=== PATIENT | female | born 1950 | race Caucasian/White ===

== ENCOUNTER 2016-10-01 07:41 | Emergency (ER) | payer OTHER ==
[~2016-10-01] VITALS: Ht 149.9 cm; Wt 71.7 kg
[~2016-10-01 07:41] MED LIST: ASCORBIC ACID500 M3; ASPIR 8181 M1; ASPIR-LOW81 MG PO; ATORVASTATIN CA10 MG PO; ATORVASTATIN CA40 MG PO; AZOR 5/20 MG1 TABLET; AZOR 5/20 MG1 TABLET PO; CELLCEPT250 MG; CELLCEPT250 MG PO; CLONIDINE HCL0.1 MG PO; EFFIENT10 MG PO; EYE SUPPORT PO; FISH OIL CONC1 EACH; GEMFIBROZIL600 MG; LEVAQUIN750 MG PO; LIDOCAINE700 MG TD; LIPITOR10 MG; METAXALONE800 MG PO; METOPROLOL TAR100 MG PO; MUCINEX D ER T1 EACH PO; MULTIVITAMIN1 EAC2 PO; POTASSIUM-9999 MG PO; PREDNISONE20 MG PO; RAPAMUNE1 MG PO; RAPAMUNE2 MG; TESSALON200 MG PO; TOPROL XL100 MG PO; TYLENOL EXTRA500 MG PO; VITAMIN E400 UNIT
[2016-10-01 08:19] LABS: HEMATOCRIT 42.6 % (36.0-46.0); MCH 26.6 PG (29.0-34.0); MCHC 33.1 G/DL (30.0-36.0); MCV 80.2 FL (83-99); MEAN PLAT.VOLUME 9.5 uM^3 (9.5-12.4); PLATELET COUNT 397 K/uL (156-360); RBC DIS.WIDTH-CV 14.5 % (11.8-14.6); RBC DIS.WIDTH-SD 42.1 % (39-53); RED BLOOD COUNT 5.31 M/uL (3.80-5.20); WHITE BLOOD COUNT 9.8 K/uL (4.1-10.2)
[2016-10-01 08:27] LABS: CHLORIDE 105 mEq/L (99-109); POTASSIUM 3.5 mEq/L (3.7-5.4); SODIUM 140 mEq/L (136-147)
[2016-10-01 08:28] LABS: GLUCOSE 119 mg/dL (70-99)
[2016-10-01 08:30] LABS: ANION GAP 11 MEQ/L (2-14)
[2016-10-01 08:32] LABS: GFR ESTIMATE (CALCULATED) > 59 mL/min/
[2016-10-01 08:33] LABS: UREA NITROGEN (BUN) 6 mg/dL (9-23)
[2016-10-01 12:51] LABS: INFLUENZA A VIRAL ANTIGEN INVALID ASSAY; INFLUENZA B VIRAL ANTIGEN INVALID ASSAY
[2016-10-01] MEDS ORDERED: ZITHROMAX Z-PA250 MG PO (13:04)
[2016-10-01] MEDS ORDERED: ROBITUSSIN NIG118 ML PO (13:04)
[2016-10-01] MEDS ORDERED: PROAIR HFA8.5 GM IH (13:04)
[2016-10-01] MEDS ORDERED: TESSALON PERLE100 MG PO (13:04)
[2016-10-01 13:31] VITALS: BP 150/67
== END 2016-10-01 13:37 | disposition home or self-care (01) ==
LOC: EME 07:41
PROVIDERS: Nurse Practitioner Family
DX: J20.9 Acute bronchitis, unspecified (principal); R06.00 Dyspnea, unspecified; R09.81 Nasal congestion; M79.1 Myalgia; Z87.01 Personal history of pneumonia (recurrent); I10 Essential (primary) hypertension; K21.9 Gastro-esophageal reflux disease without esophagitis; G89.29 Other chronic pain; Z96.643 Presence of artificial hip joint, bilateral; Z94.0 Kidney transplant status; Z79.82 Long term (current) use of aspirin; Z87.891 Personal history of nicotine dependence
CPT/HCPCS: 71020; 80048; 85027; 87502; 93005; 94640; 99281; 99284

== ENCOUNTER 2017-07-18 10:32 | Emergency (ER) | payer OTHER ==
[~2017-07-18] VITALS: Ht 152.4 cm; Wt 76.4 kg
[~2017-07-18 10:32] MED LIST changes: +PROAIR HFA8.5 GM IH; +ROBITUSSIN NIG118 ML PO; +TESSALON PERLE100 MG PO; +ZITHROMAX Z-PA250 MG PO
[2017-07-18 11:37] LABS: HEMATOCRIT 42.9 % (36.0-46.0); MCH 26.7 PG (29.0-34.0); MCHC 32.9 G/DL (30.0-36.0); MCV 81.1 FL (83-99); MEAN PLAT.VOLUME 9.3 uM^3 (9.5-12.4); PLATELET COUNT 434 K/uL (156-360); RBC DIS.WIDTH-SD 44.3 % (39-53); RED BLOOD COUNT 5.29 M/uL (3.80-5.20)
[2017-07-18 11:48] LABS: CHLORIDE 105 mEq/L (99-109); POTASSIUM 4.2 mEq/L (3.7-5.4); SODIUM 141 mEq/L (136-147)
[2017-07-18 11:49] LABS: GLUCOSE 109 mg/dL (70-99)
[2017-07-18 11:51] LABS: ANION GAP 12 MEQ/L (2-14)
[2017-07-18 11:53] LABS: GFR ESTIMATE (CALCULATED) > 59 mL/min/
[2017-07-18 11:54] LABS: UREA NITROGEN (BUN) 9 mg/dL (9-23)
[2017-07-18 12:04] LABS: TROP-I INTERPRETATION NEGATIVE; TROPONIN-I < 0.01 ng/mL (0.0-0.30)
[2017-07-18 14:38] LABS: TROP-I INTERPRETATION NEGATIVE; TROPONIN-I < 0.01 ng/mL (0.0-0.30)
[2017-07-18] MEDS ORDERED: VENTOLIN HFA18 GM IH (15:14)
[2017-07-18] MEDS ORDERED: ZITHROMAX Z-PA250 MG PO (15:14)
[2017-07-18 15:35] VITALS: BP 110/48
== END 2017-07-18 15:37 | disposition home or self-care (01) ==
LOC: EME 10:32
PROVIDERS: Emergency Medicine
DX: J40 Bronchitis, not specified as acute or chronic (principal); R00.2 Palpitations; I12.9 Hypertensive chronic kidney disease with stage 1 through stage 4 chronic kidney disease, or unspecified chronic kidney disease; N18.9 Chronic kidney disease, unspecified; Z94.0 Kidney transplant status; M32.9 Systemic lupus erythematosus, unspecified; K21.9 Gastro-esophageal reflux disease without esophagitis; F41.9 Anxiety disorder, unspecified; Z96.643 Presence of artificial hip joint, bilateral; Z79.82 Long term (current) use of aspirin; Z88.1 Allergy status to other antibiotic agents; Z88.0 Allergy status to penicillin; Z88.6 Allergy status to analgesic agent
CPT/HCPCS: 71020; 80048; 84484; 85027; 93005; 99281; 99285

== ENCOUNTER 2018-01-28 17:32 | Emergency (ER) | payer OTHER ==
[~2018-01-28] VITALS: Ht 149.9 cm; Wt 73.0 kg
[~2018-01-28 17:32] MED LIST changes: +VENTOLIN HFA18 GM IH
[2018-01-28 18:23] LABS: BASOPHIL (%) 0.3 % (0-1); EOSINOPHIL (%) 0.8 % (0-5); EOSINOPHIL COUNT 0.1 K/uL (0-0.3); HEMOGLOBIN 15.3 G/DL (11.9-15.5); IMMATURE GRANULOCYTE (%) 0.3 % (0.0-0.7); LYMPHOCYTE (%) 21.7 % (15-42); LYMPHOCYTE COUNT 2.5 K/uL (1.0-2.8); MCH 26.2 PG (29.0-34.0); MCHC 33.3 G/DL (30.0-36.0); MCV 78.8 FL (83-99); MONOCYTE (%) 9.7 % (3-12); MONOCYTE COUNT 1.1 K/uL (0-0.8); NEUTROPHIL (%) 67.2 % (45-76); NEUTROPHIL COUNT 7.7 K/uL (1.8-6.4); PLATELET COUNT 405 K/uL (156-360); RBC DIS.WIDTH-CV 15.1 % (11.8-14.6); RBC DIS.WIDTH-SD 41.8 % (39-53); RED BLOOD COUNT 5.84 M/uL (3.80-5.20); WHITE BLOOD COUNT 11.5 K/uL (4.1-10.2)
[2018-01-28 18:29] LABS: INTER. NORMALIZED RATIO 1.1
[2018-01-28 18:31] LABS: PTT 30.1 SEC (25-37)
[2018-01-28 18:36] LABS: ALBUMIN 4.5 g/dL (3.2-4.8); CHLORIDE 105 mEq/L (99-109); MAGNESIUM 1.9 mg/dL (1.3-2.7); POTASSIUM 3.7 mEq/L (3.7-5.4); SODIUM 140 mEq/L (136-147)
[2018-01-28 18:37] LABS: GLUCOSE 105 mg/dL (70-99); TOTAL PROTEIN 7.7 g/dL (6.4-8.3)
[2018-01-28 18:39] LABS: TOTAL BILIRUBIN 0.5 mg/dL (0.0-1.0)
[2018-01-28 18:41] LABS: ALKALINE PHOSPHATASE 64 IU/L (3-129); CREATININE 0.6 mg/dL (0.6-1.3); GFR ESTIMATE (CALCULATED) > 59 mL/min/
[2018-01-28 18:42] LABS: UREA NITROGEN (BUN) 14 mg/dL (9-23)
[2018-01-28 18:43] LABS: AST (GOT) 27 IU/L (2-34)
[2018-01-28 18:44] LABS: ALT (GPT) 24 IU/L (3-49); TROP-I INTERPRETATION NEGATIVE; TROPONIN-I < 0.01 ng/mL (0.0-0.30)
[2018-01-28 18:47] LABS: D-DIMER ELISA < 150.00 ng/mLDDU (<230)
[2018-01-28] MEDS ORDERED: CARDIZEM30 MG PO (19:48)
[2018-01-28 20:45] VITALS: BP 136/90
== END 2018-01-28 20:47 | disposition home or self-care (01) ==
LOC: EME 17:32
PROVIDERS: Emergency Medicine
DX: I48.91 Unspecified atrial fibrillation (principal); K21.9 Gastro-esophageal reflux disease without esophagitis; M32.9 Systemic lupus erythematosus, unspecified; I12.9 Hypertensive chronic kidney disease with stage 1 through stage 4 chronic kidney disease, or unspecified chronic kidney disease; N18.9 Chronic kidney disease, unspecified; Z94.0 Kidney transplant status; F41.9 Anxiety disorder, unspecified; Z85.9 Personal history of malignant neoplasm, unspecified; Z96.643 Presence of artificial hip joint, bilateral; Z79.82 Long term (current) use of aspirin; Z88.6 Allergy status to analgesic agent; Z88.1 Allergy status to other antibiotic agents; Z88.0 Allergy status to penicillin
CPT/HCPCS: 71045; 80053; 83735; 84484; 85025; 85379; 85610; 85730; 93005; 99281; 99285; J7040